=== PATIENT | male | born 1995 | race Caucasian/White ===

== ENCOUNTER 2018-03-19 12:49 | Emergency (ER) | payer OTHER ==
[2018-03-19 13:15] VITALS: BP 157/96
[2018-03-19] MEDS ORDERED: DEXAMETHASONE 10 MG/ML VIAL PO ONE (13:46)
--- NOTE | 2018-03-19 13:49 | EDPHY ---
H & P Time Seen by Provider: 03/19/18 13:30 HPI/ROS: This patient complains of moderate sore throat low worsens with swallowing. Onset was over the past 2 days associated low-grade fevers. He took Advil for her mg prior to arrival with partial improvement and notes no other exacerbating factors. He has associated muffled voice and notes some cervical lymph node swelling. Looking in the mirror he noted associated uvular swelling. ROS: Constitutional: No high fevers or chills HEENT: No breathing difficulties. No nasal congestion or sinus pain Pulmonary: No cough Cardiovascular: No lightheadedness GI: No vomiting Integumentary: No skin rash 7 point review of symptoms is performed and otherwise negative with exception of pertinent positives and negatives listed in HPI and ROS Past Medical/Surgical History: Immunizations up-to-date. Otherwise healthy Smoking Status: Never smoked Physical Exam: Physical Exam Vital signs are normal. General: No acute distress HEENT: Nose: Clear discharge bilaterally. No sinus tenderness to percussion. Ears: External canals and tympanic membranes are clear with no erythema or abnormal findings bilaterally. Oropharynx: Patient has moderate uvular swelling erythema and exudate. There is also erythema in the posterior pharynx. Has slightly muffled voice but maintains a Mallampati 1 airway. No drooling or stridor. No submental swelling. Eyes: Pupils equal and react to light. Extraocular motions are intact. Neck: Supple with no meningismus. Mild anterior cervical lymphadenopathy is present bilaterally Lungs: Clear to auscultation bilaterally with no rales, rhonchi or wheeze. No respiratory distress. Cardiac: Regular rate and rhythm with no murmur gallop or rub Skin: No rash or pallor. Neuro: Alert with no focal deficits noted. Initial differential diagnosis: Uvulitis and pharyngitis-strep versus Haemophilus versus other bacteria Constitutional: Initial Vital Signs Temperature (C) 37.7 C 03/19/18 13:11 Heart Rate 86 03/19/18 13:11 Respiratory Rate 14 03/19/18 13:11 Blood Pressure 157/96 H 03/19/18 13:11 O2 Sat (%) 95 03/19/18 13:11 O2 Delivery Mode Room Air Allergies/Adverse Reactions: No Known Allergies Allergy (Unverified 03/19/18 13:11) Home Medications: Medication Instructions Recorded Cefdinir [Omnicef (*)] 300 mg PO BID #20 cap 03/19/18 Mbx Soln;Maalox/Diphen/Lido 5 - 10 ml PO PRN PRN #120 ml 03/19/18 [Maalox/Diphenhydramine/Lido] MDM/Departure - [facility] ED Course/Re-evaluation: Decadron 10 mg p. O. Patient declined parenteral antibiotics or treatment for this condition. Discussion: Will cover the patient with Omnicef to cover potential Haemophilus. I counseled regarding this in some detail. No clinical evidence of airway obstruction, sepsis or other red flag findings currently. He will also take ibuprofen Tylenol for pain control and MD exclusion in addition if needed. He understands need to return emergency department should develop any worsening symptoms despite treatment plan - Depart Disposition: Home, Routine, Self-Care Clinical Impression: Uvulitis Condition: Good Instructions: Uvulitis (ED) Additional Instructions: Diagnosis: Uvulitis Plan: You received a dose of Decadron steroid here which should help out swelling Start Omnicef cephalosporin antibiotic take 2 times a day for 10 days. Ibuprofen Tylenol for pain as needed MDX solution -rinse gargle spit in addition if needed for pain. Return to a physician if you have worsening symptoms despite treatment plan Prescriptions: Cefdinir [Omnicef (*)] 300 mg PO BID #20 cap Mbx Soln;Maalox/Diphen/Lido [Maalox/Diphenhydramine/Lido] 5 - 10 ml PO PRN PRN # 120 ml PRN Reason: throat pain Referrals: NONE *PRIMARY CARE P,. [Primary Care Provider] - As per Instructions Maribell Shannon MD [Medical Doctor] - As per Instructions
[2018-03-19] MEDS ORDERED: DEXAMETHASONE 4 MG/ML VIAL ONE (14:07)
== END 2018-03-19 14:10 | disposition home or self-care (01) ==
LOC: CED 12:49
DX: K12.2 Cellulitis and abscess of mouth (principal)
CPT/HCPCS: 99284-ER; J1100